=== PATIENT | male | born 1980 | race Two or more races ===

== ENCOUNTER → 2017-01-16 | Outpatient (CLI) | payer MEDICAID | LOC: SBRMNEURO 20:00 | PROVIDERS: ATTEND Physician Assistant Medical | DX: G47.31 Primary central sleep apnea (principal); G47.33 Obstructive sleep apnea (adult) (pediatric); G47.52 REM sleep behavior disorder ==

== ENCOUNTER → 2017-03-28 | Outpatient (CLI) | payer MEDICAID | LOC: SBRMNEURO 20:00 | PROVIDERS: ATTEND Internal Medicine Pulmonary Disease | DX: G47.31 Primary central sleep apnea (principal) ==

== ENCOUNTER 2018-08-25 16:22 | Emergency (ER) | payer MEDICAID, OTHER ==
--- NOTE | 2018-08-25 17:07 | EDPHY ---
H & P Time Seen by Provider: 08/25/18 16:56 HPI/ROS: CHIEF COMPLAINT: Depression HISTORY OF PRESENT ILLNESS: The patient is a 38-year-old male with a history of depression and hypertension who presents emergency department feeling depressed. Patient states that he has been dealing with depression since childhood. He does see a therapist regularly. He has been on medication for depression for the past year. Over the past few weeks he has had increased stressors. He feels as though he has occasionally had "suicidal ideation" thoughts. Patient feels safe at this time but does want a mental health evaluation. Patient denies any recent ingestion. No self-harm. Patient denies drinking alcohol or using drugs. REVIEW OF SYSTEMS: 10 systems were reveiwed and are negative with the exception of the elements mentioned in the history of present illness. Past Medical/Surgical History: Includes hypertension, depression Social history: Patient smokes cigarettes Smoking Status: Former smoker Physical Exam: Vitals noted GENERAL: No acute distress, alert. Interactive. HEENT: Eyes normal to inspection, normal pharynx, no signs of dehydration. NECK: Normal, supple. RESPIRATORY: Clear to auscultation bilaterally, no rales, rhonchi or wheezing. CVS: Regular rate and rhythm, no rubs, murmurs, or gallops. ABDOMEN: Soft, nontender, nondistended, no organomegaly. BACK: Normal to inspection, no CVA tenderness. SKIN: Normal color, no rash, warm, dry. No pallor. EXTREMITIES: No pedal edema, no calf tenderness, no Homans sign or cords, no joint swelling. NEURO/PSYCH: Alert and oriented, normal mood and affect, normal motor sensory exam. Patient answers all my questions appropriately. Constitutional: Initial Vital Signs Temperature (C) 36.6 C 08/25/18 16:29 Heart Rate 99 08/25/18 16:29 Respiratory Rate 16 08/25/18 16:29 Blood Pressure 122/88 H 08/25/18 16:29 O2 Sat (%) 93 08/25/18 16:29 O2 Delivery Mode Room Air Allergies/Adverse Reactions: No Known Allergies Allergy (Verified 08/25/18 16:28) Home Medications: Medication Instructions Recorded Escitalopram Oxalate [Lexapro 10 08/25/18 MG] Lisinopril 08/25/18 Medical Decision Making ED Course/Re-evaluation: In the emergency department I discussed possible etiologies with the patient. I discussed, in depth, the patient's reported issues with suicidal ideation. At this time the patient does not feel actively suicidal. The patient and his both feel safe having him go by private vehicle to the [facility]. I discussed case with Dr. Malik Mcmullen who accepted the patient to [facility]. The patient and were given instructions go directly to the emergency department. They were given driving directions. Differential Diagnosis: My differential includes but is not limited to depression, suicidal ideation, anxiety Departure - Departure Disposition: [facility] ER Clinical Impression: Depression Qualifiers: Depression Type: unspecified Qualified Code(s): F32.9 - Major depressive disorder, single episode, unspecified Condition: Good Instructions: Depression (ED) Additional Instructions: Go directly to the emergency department at the [facility]. Dr. Mcmullen accepted your transfer. Referrals: Marcio Briseno, [Primary Care Provider] - As per Instructions
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
[2018-08-25 19:14] LABS: PLATELET COUNT 284 10^3/uL (150-400)
[2018-08-25 21:57] VITALS: BP 148/90
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
--- NOTE | 2018-08-25 22:09 | ASMTTCLDSP ---
[facility]LC Discharge Disposition Disposition: Answers: Discharge If Answers: Yes DISCHARGED: Patient/family given suicide hotline info & SAMHSA brochure? Disposition Notes: Notes: Pt was given resources for [facility] Outpatient Counseling and the [facility]. Pt is also going to follow-up with [facility]. Discharge Concerns/Recommendations: Notes: In consultation with [facility] ED physician, Austin Pena MD, and on-call psychiatrist, Clem Mcdonald MD, both concurred that pt does not appear to meet 27-65 criteria requiring psychiatric hospitalization as pt does not appear to be an imminent risk of harm to self/others/gravely disabled due to a mental illness condition. Date Signed: 08/25/2018 10:08 PM Electronically Signed By:Keke Beard
== END 2018-08-25 21:56 | disposition home or self-care (01) ==
LOC: CED 16:22
DX: R45.851 Suicidal ideations (principal); F32.9 Major depressive disorder, single episode, unspecified; I10 Essential (primary) hypertension
CPT/HCPCS: 80305; G0480